=== PATIENT | female | born 1995 | race Hispanic/Latino ===

== ENCOUNTER 2019-08-29 18:38 | Emergency (ER) | payer OTHER, SELFPAY ==
[2019-08-29] MEDS ORDERED: predniSONE 20 MG TAB ONE (19:37)
[2019-08-29] MEDS ORDERED: diphenhydrAMINE 25 MG CAP ONE (19:37)
[2019-08-29] MEDS ORDERED: Famotidine 20 MG TAB ONE (19:37)
== END 2019-08-29 20:45 | disposition home or self-care (01) ==
LOC: ERS 18:38
DX: S40.862A Insect bite (nonvenomous) of left upper arm, initial encounter (principal); S00.86XA Insect bite (nonvenomous) of other part of head, initial encounter; L50.9 Urticaria, unspecified; W57.XXXA Bitten or stung by nonvenomous insect and other nonvenomous arthropods, initial encounter
CPT/HCPCS: 99282; J7512; Q0163

== ENCOUNTER 2021-10-11 14:45 | Outpatient (CLI) | payer MEDICAID | END 2021-10-11 14:46 | disposition home or self-care (01) | LOC: BICULT 14:45 | PROVIDERS: ATTEND Nurse Practitioner Women's Health | DX: N63.20 Unspecified lump in the left breast, unspecified quadrant (principal) ==

== ENCOUNTER 2021-11-02 08:07 | Outpatient (CLI) | payer MEDICAID | END 2021-11-02 08:08 | disposition home or self-care (01) | LOC: BICULT 08:07 | PROVIDERS: ATTEND Nurse Practitioner Women's Health | DX: N61.1 Abscess of the breast and nipple (principal) ==